=== PATIENT | male | born 1990 | race Caucasian/White ===

== ENCOUNTER 2017-12-27 23:08 | Emergency (ER) | payer OTHER ==
[~2017-12-27] VITALS: Ht 177.8 cm; Wt 83.5 kg
[~2017-12-27 23:08] MED LIST: IBUP800T23 PO; TRAM50 PO
[2017-12-27 23:10] VITALS: O2SAT 100
[2017-12-27 23:11] VITALS: BP 146/77; PULSE 86; RESP 20; TEMP 98.8; O2SAT 100
[2017-12-27] MEDS ORDERED: LIDOCAINE HCL 1% PF 10 ML VIAL INFIL ONE (23:30)
[2017-12-27] MEDS ORDERED: DIPHTH/TETANUS/ACEL PERTUSSIS (BOOSTER) 0.5 ML VIAL/PFS IM ONE (23:30)
[2017-12-27 23:57] LABS: AUTOMATED NEUTROPHIL # 4.9 TH/MM3 (1.8-7.7); BASOPHIL # 0.1 TH/MM3 (0-0.2); BASOPHIL % 0.8 % (0.0-2.0); EOSINOPHIL # 0.3 TH/MM3 (0-0.4); EOSINOPHIL % 3.3 % (0.0-4.0); HEMATOCRIT 43.4 % (39.0-51.0); LYMPHOCYTE # 2.5 TH/MM3 (1.0-4.8); MEAN CELL VOLUME 85.7 FL (80.0-100.0); MEAN CORPUSCULAR HEMOGLOBIN 29.7 PG (27.0-34.0); MEAN CORPUSCULAR HGB CONC 34.6 % (32.0-36.0); MEAN PLATELET VOLUME 9.2 FL (7.0-11.0); MONO % 7.1 % (0.0-8.0); MONOCYTE # 0.6 TH/MM3 (0-0.9); NEUT % 58.8 % (16.0-70.0); PLATELET COUNT 196 TH/MM3 (150-450); RED BLOOD COUNT 5.07 MIL/MM3 (4.50-5.90); RED CELL DISTRIBUTION WIDTH 13.4 % (11.6-17.2); WHITE BLOOD COUNT 8.4 TH/MM3 (4.0-11.0)
[2017-12-28] MEDS ORDERED: TETANUS/DIPHTHERIA TOXOID ADULT 0.5 ML VIAL IM ONE
[2017-12-28 00:08] LABS: CALCIUM 9.1 MG/DL (8.5-10.1)
[2017-12-28 00:09] LABS: BICARBONATE 25.8 MEQ/L (21.0-32.0)
[2017-12-28 00:10] LABS: INTERNATIONAL NORMALIZED RATIO 1.1 RATIO; PROTHROMBIN TIME - PATIENT 11.1 SEC (9.8-11.6)
[2017-12-28 00:12] LABS: CREATININE 0.86 MG/DL (0.60-1.30)
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
[2017-12-28] MEDS: SODIUM CHLORIDE 0.9% FLUSH 10 ML FLUSH IVF PRN ×2 (00:42→01:36)
[2017-12-28] MEDS ORDERED: SODIUM CHLOR 0.9% 1000 ML INJ 1,000 ML IV ONE (01:15)
[2017-12-28] MEDS ORDERED: ceFAZolin 2 GM PREMIX 50 ML IV ONE (01:15)
[2017-12-28] MEDS ORDERED: KETOROLAC TROMETHAMINE 30 MG/ML (IVP) VIAL IV PUSH ONE (01:15)
[2017-12-28 01:27] VITALS: BP 114/70; PULSE 75; RESP 20; O2SAT 98
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
[2017-12-28] MEDS ORDERED: ROBA750T PO (02:24)
[2017-12-28] MEDS ORDERED: IBUP1TAB7 PO (02:24)
[2017-12-28] MEDS ORDERED: SODIUM CHLORID 0.9% 500 ML INJ 500 ML IV ONE (02:30)
[2017-12-28] MEDS ORDERED: ONDANSETRON ODT 4 MG TAB PO ONE (02:30)
[2017-12-28] MEDS ORDERED: MORPHINE SULFATE 2 MG/ML SYRINGE IV PUSH ONE (02:30)
[2017-12-28 02:36] VITALS: BP 141/65; PULSE 79; RESP 18; O2SAT 99
== END 2017-12-28 03:01 | disposition home or self-care (01) ==
LOC: PHED 23:08
DX: S16.1XXA Strain of muscle, fascia and tendon at neck level, initial encounter (principal); S39.012A Strain of muscle, fascia and tendon of lower back, initial encounter; S93.402A Sprain of unspecified ligament of left ankle, initial encounter; S01.01XA Laceration without foreign body of scalp, initial encounter; V89.2XXA Person injured in unspecified motor-vehicle accident, traffic, initial encounter; F12.90 Cannabis use, unspecified, uncomplicated; Z72.0 Tobacco use; Z23 Encounter for immunization
CPT/HCPCS: 12001; 70450; 71045; 72100; 72125; 73610; 80048; 85025; 85610; 85730; 86850; 86900; 86901; 90471; 90714; 96365; 96375; 99285; J0690; J1885; J2270; J7030; J7040

== ENCOUNTER 2018-01-01 14:01 | Emergency (ER) | payer SELFPAY ==
[~2018-01-01] VITALS: Ht 175.3 cm; Wt 81.0 kg
[~2018-01-01 14:01] MED LIST changes: +IBUP1TAB7 PO; +ROBA750T PO
[2018-01-01 14:30] VITALS: BP 121/58; PULSE 76; RESP 16; TEMP 98; O2SAT 98
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
== END 2018-01-01 16:00 | disposition home or self-care (01) ==
LOC: PHED 14:01 → PHEFT 16:00
DX: Z48.02 Encounter for removal of sutures (principal); S01.01XD Laceration without foreign body of scalp, subsequent encounter; X58.XXXD Exposure to other specified factors, subsequent encounter
CPT/HCPCS: 99281